=== PATIENT | female | born 1960 | race Caucasian/White ===

== ENCOUNTER 2020-08-18 12:30 | Outpatient (REF) | payer MEDICARE, MEDICAID, SELFPAY | END 2020-08-18 12:31 | disposition home or self-care (01) | LOC: HO.MAMMO 12:30 | PROVIDERS: Visit Provider Hospitalist | DX: Z13.89 Encounter for screening for other disorder (principal) ==

== ENCOUNTER 2022-05-12 10:54 | Emergency (ER) | payer MEDICARE, MEDICAID, SELFPAY ==
--- NOTE | ~2022-05-12 | US_ITS ---
EXAMINATION: US VENOUS ULTRASOUND WITH DOPPLER LOWER EXTREMITY, RIGHT CLINICAL INFORMATION: Swelling, redness COMPARISON: None TECHNIQUE: Ultrasound of the deep veins is performed from the hip to the calf with compression sonography and color and pulse Doppler assessment. Spectral analysis with color-flow imaging is performed. FINDINGS: There is normal venous compression and respiratory variation and augmented flow. The visualized common femoral vein, superficial femoral vein, profunda femoral vein, popliteal vein, and the trifurcation region shows no evidence of deep venous thrombosis. There is no significant popliteal fossa cyst. If the patient's symptoms persist, followup ultrasound in 5 days 7 days might be of value to exclude proximal propagation from a non-visualized calf vein. US/US venous duplex LE RT IMPRESSION: No DVT demonstrated in the right lower extremity.
[2022-05-12 11:08] VITALS: BP 135/70; BP 156/96; PULSE 72; PULSE 80; RESP 18; TEMP 37.7; O2SAT 95; O2SAT 97; BMI 47.2
[2022-05-12 11:15] VITALS: BP 135/70; PULSE 80; RESP 18; TEMP 37.7; O2SAT 95
--- NOTE | 2022-05-12 13:28 | ED.GENADULT ---
HPI - General Adult General Chief complaint: General Medical <MARIA D Gonzalez Last Filed: 05/12/22 16:22> Stated complaint: RT FOOT PAIN X 2 DAYS <MARIA D Gonzalez - Last Filed: 05/12/22 16:22> Time Seen by Provider: 05/12/22 13:20 <MARIA D Gonzalez Last Filed: 05/12/22 16:22> Source: patient and EMS <MARIA D Gonzalez Last Filed: 05/12/22 16:22> Mode of arrival: EMS <MARIA D Gonzalez Last Filed: 05/12/22 16:22> Limitations: no limitations <MARIA D Gonzalez Last Filed: 05/12/22 16:22> History of Present Illness HPI narrative: 61-year-old female with history of TBI presents the ER from [facility] for evaluation of right foot pain and swelling for the last couple of days. reportedly there was a portable x-ray taken at the facility that did not show any fractures. There was concern for possible blood clot so an ultrasound was scheduled but the staff decided center into the ER for further evaluation today. Patient is a poor historian. She thinks she might have hit it against something a couple of days ago but cannot recall the details. She reports the top of her foot is swollen and bruised. She has no redness or warmth to the area. She denies any fevers, muscle aches, swelling of the calf or calf pain. No shortness of breath or chest pain. She is not diabetic. she is ambulatory <MARIA D Gonzalez Last Filed: 05/12/22 16:22> MD complaint: Right foot pain and swelling <MARIA D Gonzalez Last Filed: 05/12/22 16:22> Onset (ago): unknown <MARIA D Gonzalez Last Filed: 05/12/22 16:22> Location: right and lower extremity <MARIA D Gonzalez Last Filed: 05/12/22 16:22> Radiation: non-radiation <MARIA D Gonzalez Last Filed: 05/12/22 16:22> Severity: moderate <MARIA D Gonzalez Last Filed: 05/12/22 16:22> Severity scale (1-10): 5 <MARIA D Gonzalez - Last Filed: 05/12/22 16:22> Quality: aching <MARIA D Gonzalez - Last Filed: 05/12/22 16:22> Pain Consistency: intermittent <MARIA D Gonzalez - Last Filed: 05/12/22 16:22> Relieving factors: none <MARIA D Gonzalez - Last Filed: 05/12/22 16:22> Exacerbating factors: other ( palpation) <MARIA D Gonzalez - Last Filed: 05/12/22 16:22> Associated symptoms: denies other symptoms <MARIA D Gonzalez - Last Filed: 05/12/22 16:22> Treatments prior to arrival: none <MARIA D Gonzalez - Last Filed: 05/12/22 16:22> Related Data Home medications: Home Medications Medication Instructions Recorded Confirmed acetaminophen 325 mg tablet 650 mg PO QID PRN 11/08/21 albuterol sulfate 90 mcg/actuation 2 puff inhalation QID 11/08/21 aerosol inhaler atorvastatin 10 mg tablet 10 mg PO DAILY 11/08/21 bisacodyl 10 mg rectal suppository 10 mg HI DAILY PRN 11/08/21 emollient combination no.[id number] appl topical 11/08/21 (Eucerin Advanced Repair topical cream) fluoride (sodium) 1.1 % dental gel 1 appl dental BEDTIME 11/08/21 (SF) gabapentin 100 mg capsule 100 mg PO TID 11/08/21 gabapentin 400 mg capsule 400 mg PO TID 11/08/21 glucagon 1 mg solution for 1 mg subcut Q20M PRN 11/08/21 injection (Glucagon Emergency Kit) guaifenesin 100 mg/5 mL oral liquid 200 mg PO Q4H PRN 11/08/21 ibuprofen 600 mg tablet 600 mg PO TID 11/08/21 lactulose 10 gram/15 mL oral PO 11/08/21 solution losartan 50 mg tablet 50 mg PO DAILY 11/08/21 menthol 0.44 %-zinc oxide 20.6 % 1 appl topical Q1H PRN 11/08/21 topical paste metoprolol succinate 25 mg 25 mg PO DAILY 11/08/21 tablet,extended release 24 hr mineral oil (Fleet Mineral Oil 118 ml HI DAILY PRN 11/08/21 enema) nystatin 100,000 unit/gram topical 1 appl topical QID 11/08/21 powder quetiapine 25 mg tablet mg PO 11/08/21 sennosides 8.6 mg tablet (Natural 8.6 mg PO BEDTIME 11/08/21 Senna Laxative) venlafaxine 150 mg 150 mg PO DAILY 11/08/21 capsule,extended release 24 hr venlafaxine 75 mg capsule,extended 75 mg PO DAILY 11/08/21 release 24 hr <MARIA D Gonzalez - Last Filed: 05/12/22 16:22> Allergies/adverse reactions: Allergies Allergy/AdvReac Type Severity Reaction Status Date / Time haloperidol [From HALDOL] Allergy Unknown UNKNOWN Verified 11/08/21 14:48 latex [LATEX] Allergy Unknown UNKNOWN Verified 11/08/21 14:48 Penicillins [PENICILLINS] Allergy Unknown UNKNOWN Verified 11/08/21 14:48 From HALDOL Allergy Unknown UNKNOWN Uncoded 01/08/20 18:03 <MARIA D Gonzalez - Last Filed: 05/12/22 16:22> Review of Systems Review of Systems: Yes all other systems are reviewed and are negative <MARIA D Gonzalez - Last Filed: 05/12/22 16:22> [facility] Past Medical History Medical History: Medical History Alcohol abuse Anoxic brain damage, not elsewhere classified Aphasia Cocaine abuse Constipation Disease of circulatory system Extrapyramidal and movement disorder, unspecified History of major depression Mood disorder due to known physiological condition, unspecified Morbid obesity Opioid abuse Other lack of coordination Other specified forms of tremor Traumatic brain injury Type 2 diabetes mellitus Unspecified injury of head, sequela <MARIA D Gonzalez - Last Filed: 05/12/22 16:22> Social History Social History: Social History Alcohol intake: never Smoked in Last 30 Days: No Use of substances other than those prescribed or required for medical reasons: No Any prior treatment program specific to substance use: No Advance Directives: No Patient : No <MARIA D Gonzalez - Last Filed: 05/12/22 16:22> Physical Exam ED Vital Signs: Vital Signs - 24 hr 05/12/22 11:08 05/12/22 11:15 Temperature 99.8 F 99.8 F Pulse Rate 80 80 Respiratory Rate 18 18 Blood Pressure 135/70 135/70 Pulse Oximetry 95 95 Oxygen Delivery Method Room Air Room Air BMI result Body Mass Index 47.2 <MARIA D Gonzalez - Last Filed: 05/12/22 16:22> Vital Signs - 24 hr 05/12/22 11:08 05/12/22 11:15 Temperature 99.8 F 99.8 F Pulse Rate 80 80 Respiratory Rate 18 18 Blood Pressure 135/70 135/70 Pulse Oximetry 95 95 Oxygen Delivery Method Room Air Room Air BMI result Body Mass Index 47.2 <Yohan Suarez MD - Last Filed: 05/12/22 16:28> Appearance: Alert. Oriented X3. No acute distress. HEENT: normal inspection CVS: Normal heart rate and rhythm. Pulses normal. Respiratory: No respiratory distress. Speaks in complete sentences. Skin: Skin warm and dry. Normal skin color. Normal skin turgor. No rashes. Extremities: top of the right foot with mild to moderate generalized swelling with bluish ecchymosis at the base of the toes extending to the foot. No point tenderness. No swelling or tenderness of the medial or lateral malleoli. Normal range of motion of the toes. Foot is warm and well perfused with 1+ DP and PT pulses. No calf tenderness or swelling, no erythema. No pitting edema of the lower extremities. Neuro: Oriented X 3. No motor deficit. No sensory deficit. Intermittently agitated but redirectable. <MARIA D Gonzalez - Last Filed: 05/12/22 16:22> Course Course Course Narrative: 61 yo female with history TBI presenting with right foot pain, swelling and bruising. Appears to be traumatic in nature with some ecchymosis and swelling. X-ray at the facility was negative for fracture. Does not appear to be compatible with cellulitis, no erythema or warmth. Doubt DVT but will get ultrasound for further evaluation. Patient has been up to ambulating to the bathroom with a steady gait. <MARIA D Gonzalez - Last Filed: 05/12/22 16:22> Reevaluation(s) Reevaluation #1: Basic labs are unremarkable. Ultrasound is negative for DVT. Patient is stable for discharge back to her nursing facility, discussed rest, ice, elevation and William wrap p.r.n.. Stable for DC. Patient agrees with plan. <MARIA D Gonzalez - Last Filed: 05/12/22 16:22> Medical Decision Making Differential Diagnosis Differential Diagnoses: The differential diagnosis associated with the presentation includes <MARIA D Gonzalez - Last Filed: 05/12/22 16:22> Cellulitis, contusion, broken metatarsal, broken toe, ankle sprain, less likely DVT, less likely CHF, <MARIA D Gonzalez - Last Filed: 05/12/22 16:22> Lab Data MDM Lab Attestation statement: I reviewed the patient's lab results. <MARIA D Gonzalez - Last Filed: 05/12/22 16:22> unremarkable <MARIA D Gonzalez - Last Filed: 05/12/22 16:22> Result Diagrams: 05/12/22 13:33 05/12/22 13:32 <MARIA D Gonzalez - Last Filed: 05/12/22 16:22> Labs: Lab Results 05/12/22 05/12/22 Range/Units 13:32 13:33 WBC 4.4 L (4.8-10.8) X10*3/uL RBC 3.93 L (4.20-5.50) X10*6/uL Hgb 11.6 L (12.0-16.0) g/dl Hct 34.3 L (37.0-47.0) % MCV 87.3 (80.0-98.0) fL MCH 29.5 (27.0-33.0) pg MCHC 33.8 (31.0-35.0) g/dl RDW 12.8 (11.0-16.0) % Plt Count 182 (160-400) X10*3/uL MPV 9.3 L (9.4-12.3) fL Immature Gran % (Auto) 0.2 (0.0-0.4) % Neut % (Auto) 53.8 (45-73) % Lymph % (Auto) 30.4 (20-40) % Runnels % (Auto) 11.3 H (2-11) % Eos % (Auto) 4.1 H (0-4) % Baso % (Auto) 0.2 (0-2) % Lymph # (Auto) 1.3 (1.2-4.9) X10*3/uL Runnels # (Auto) 0.5 (0.1-1.2) X10*3/uL Eos # (Auto) 0.2 (0.0-0.4) X10*3/uL Baso # (Auto) 0.0 (0.0-0.2) X10*3/uL Abs Immat Gran (auto) 0.01 (0.00-0.03) X10*3/uL Absolute Neuts (auto) 2.4 (2.0-8.3) x10*3/uL Absolute Nucleated RBC 0.000 (0.0-0.012) X10*3/uL Nucleated RBC % (auto) 0.0 (0.0-0.2) /100WBC Sodium 135 (135-145) mmol/L Potassium 3.9 (3.3-5.1) mmol/L Chloride 103 (96-108) mmol/L Carbon Dioxide 26 (22-29) mmol/L Anion Gap 10 L (12-20) BUN 12 (9-16) mg/dL Creatinine 0.76 (0.5-1.4) mg/dL Estim Creat Clear Calc 107.9 Estimated GFR > 60 Random Glucose 125 H (60-115) mg/dL Calcium 8.6 (8.4-10.2) mg/dL C-Reactive Protein 4.08 H (< or = 0.50) mg/dL <MARIA D Gonzalez - Last Filed: 05/12/22 16:22> Lab Results 05/12/22 05/12/22 Range/Units 13:32 13:33 WBC 4.4 L (4.8-10.8) X10*3/uL RBC 3.93 L (4.20-5.50) X10*6/uL Hgb 11.6 L (12.0-16.0) g/dl Hct 34.3 L (37.0-47.0) % MCV 87.3 (80.0-98.0) fL MCH 29.5 (27.0-33.0) pg MCHC 33.8 (31.0-35.0) g/dl RDW 12.8 (11.0-16.0) % Plt Count 182 (160-400) X10*3/uL MPV 9.3 L (9.4-12.3) fL Immature Gran % (Auto) 0.2 (0.0-0.4) % Neut % (Auto) 53.8 (45-73) % Lymph % (Auto) 30.4 (20-40) % Runnels % (Auto) 11.3 H (2-11) % Eos % (Auto) 4.1 H (0-4) % Baso % (Auto) 0.2 (0-2) % Lymph # (Auto) 1.3 (1.2-4.9) X10*3/uL Runnels # (Auto) 0.5 (0.1-1.2) X10*3/uL Eos # (Auto) 0.2 (0.0-0.4) X10*3/uL Baso # (Auto) 0.0 (0.0-0.2) X10*3/uL Abs Immat Gran (auto) 0.01 (0.00-0.03) X10*3/uL Absolute Neuts (auto) 2.4 (2.0-8.3) x10*3/uL Absolute Nucleated RBC 0.000 (0.0-0.012) X10*3/uL Nucleated RBC % (auto) 0.0 (0.0-0.2) /100WBC Sodium 135 (135-145) mmol/L Potassium 3.9 (3.3-5.1) mmol/L Chloride 103 (96-108) mmol/L Carbon Dioxide 26 (22-29) mmol/L Anion Gap 10 L (12-20) BUN 12 (9-16) mg/dL Creatinine 0.76 (0.5-1.4) mg/dL Estim Creat Clear Calc 107.9 Estimated GFR > 60 Random Glucose 125 H (60-115) mg/dL Calcium 8.6 (8.4-10.2) mg/dL C-Reactive Protein 4.08 H (< or = 0.50) mg/dL <Yohan Suarez MD - Last Filed: 05/12/22 16:28> Independent Interpretation I performed an independent interpretation of an: Ultrasound <MARIA D Gonzalez - Last Filed: 05/12/22 16:22> Interpretation: no visualized clot <MARIA D Gonzalez - Last Filed: 05/12/22 16:22> Radiology Impression Discussion of test interpretation with radiology: I have reviewed the radiologist's reading. <MARIA D Gonzalez - Last Filed: 05/12/22 16:22> Radiologist Impression: IMPRESSION: No DVT demonstrated in the right lower extremity. <MARIA D Gonzalez - Last Filed: 05/12/22 16:22> Prescription Management I considered prescription management with: Pain Medication and Antibiotic <MARIA D Gonzalez - Last Filed: 05/12/22 16:22> NSAIDs and Tylenol okay for pain control, no role for antibiotics. <MARIA D Gonzalez - Last Filed: 05/12/22 16:22> Social Determinants Patient?s care significantly limited by Social Determinants of Health including: Other Social Determinant of Health <MARIA D Gonzalez - Last Filed: 05/12/22 16:22> Attestation Attending Attestation: I personally reviewed PA/resident/nurse practitioner note. I reviewed a all results and treatment plan. I agree with the assessment and plan. I agree with disposition <Yohan Suarez MD - Last Filed: 05/12/22 16:28> Critical Care Time Critical Care Time Critical Care Time: No <MARIA D Gonzalez - Last Filed: 05/12/22 16:22> Discharge Plan Discharge Clinical Impression: Contusion of foot <MARIA D Gonzalez - Last Filed: 05/12/22 16:22> Patient Disposition: Home, Self-Care <MARIA D Gonzalez - Last Filed: 05/12/22 16:22> Instructions: Foot Contusion (ED) <MARIA D Gonzalez - Last Filed: 05/12/22 16:22> Additional Instructions: Your lab workup was unremarkable. Your ultrasound did not show any blood clot. You do not have an infection. Your foot is bruised - it will get better with ice, elevation and Motrin/Tylenol as needed for pain. You can wear an WILLIAM wrap as needed for compression and support. Follow up with your doctor as needed.d <MARIA D Gonzalez - Last Filed: 05/12/22 16:22> Prescriptions: No Action atorvastatin 10 mg tablet 10 mg PO DAILY gabapentin 100 mg capsule 100 mg PO TID lactulose 10 gram/15 mL solution PO losartan 50 mg tablet 50 mg PO DAILY venlafaxine 150 mg capsule,extended release 24hr 150 mg PO DAILY quetiapine 25 mg tablet PO venlafaxine 75 mg capsule,extended release 24hr 75 mg PO DAILY metoprolol succinate 25 mg tablet extended release 24 hr 25 mg PO DAILY gabapentin 400 mg capsule 400 mg PO TID acetaminophen 325 mg tablet 650 mg PO QID PRN albuterol sulfate 90 mcg/actuation HFA aerosol inhaler 2 puff inhalation QID bisacodyl 10 mg suppository 10 mg HI DAILY PRN menthol-zinc oxide 0.44-20.6 % paste 1 appl topical Q1H PRN Rx Instructions: while awake Eucerin Advanced Repair Cream topical mineral oil [Fleet Mineral Oil] Enema 118 ml HI DAILY PRN Rx Instructions: discard any unused portion Glucagon Emergency Kit (human) 1 mg recon soln 1 mg subcut Q20M PRN Rx Instructions: until target blood sugar attained guaifenesin 100 mg/5 mL liquid 200 mg PO Q4H PRN ibuprofen 600 mg tablet 600 mg PO TID nystatin 100,000 unit/gram powder 1 appl topical QID sennosides [Natural Senna Laxative] 8.6 mg tablet 8.6 mg PO BEDTIME fluoride (sodium) [SF] 1.1 % gel 1 appl dental BEDTIME <MARIA D Gonzalez - Last Filed: 05/12/22 16:22>
[2022-05-12 13:43] LABS: MANUAL DIFF FLAG NO
[2022-05-12 13:46] LABS: Basophils Percent Auto 0.2 % (0-2); Eosinophils Percent Auto 4.1 % (0-4); Hematocrit 34.3 % (37.0-47.0); Hemoglobin 11.6 g/dl (12.0-16.0); Imm Gran Abs Auto 0.01 X10*3/uL (0.00-0.03); Imm Gran Pct Auto 0.2 % (0.0-0.4); Lymphocytes Absolute Auto 1.3 X10*3/uL (1.2-4.9); Lymphocytes Percent Auto 30.4 % (20-40); Mean Corpuscular HGB Conc 33.8 g/dl (31.0-35.0); Mean Corpuscular Hemoglobin 29.5 pg (27.0-33.0); Mean Corpuscular Volume 87.3 fL (80.0-98.0); Mean Platelet Volume 9.3 fL (9.4-12.3); Monocytes Percent Auto 11.3 % (2-11); Neutrophils Absolute Auto 2.4 x10*3/uL (2.0-8.3); Neutrophils Percent Auto 53.8 % (45-73); Platelet Count 182 X10*3/uL (160-400); Red Blood Count 3.93 X10*6/uL (4.20-5.50); Red Cell Distribution Width 12.8 % (11.0-16.0); White Blood Count 4.4 X10*3/uL (4.8-10.8)
[2022-05-12 13:47] LABS: Eosinophils Absolute Auto 0.2 X10*3/uL (0.0-0.4); Monocytes Absolute Auto 0.5 X10*3/uL (0.1-1.2)
[2022-05-12 14:14] LABS: Anion Gap 10 (12-20); Blood Urea Nitrogen 12 mg/dL (9-16); C Reactive Protein 4.08 mg/dL (< or = 0.50); Calcium 8.6 mg/dL (8.4-10.2); Carbon Dioxide 26 mmol/L (22-29); Chloride 103 mmol/L (96-108); Creatinine Clr Calc Pharmacy 107.9; Estimated Glomerular Filt Rate > 60; Glucose Random 125 mg/dL (60-115); Potassium 3.9 mmol/L (3.3-5.1); Sodium 135 mmol/L (135-145)
--- NOTE | 2022-05-12 14:55 | PC.NURSE ---
Patient ambulating to bathroom with steady gait
[2022-05-12 17:07] LABS: Erythrocyte Sedimentation Rate 45 MM/HR (0-20)
--- NOTE | 2022-05-12 17:11 | PC.NURSE ---
Report called and given to [facility] staff
== END 2022-05-12 19:20 | disposition home or self-care (01) ==
PROVIDERS: Physician Assistant; Emergency Provider Emergency Medicine; PCP Hospitalist
DX: S90.31XA Contusion of right foot, initial encounter (principal); M79.671 Pain in right foot; M79.89 Other specified soft tissue disorders; X58.XXXA Exposure to other specified factors, initial encounter; Y93.9 Activity, unspecified; Y92.9 Unspecified place or not applicable; Y99.9 Unspecified external cause status
CPT/HCPCS: 36415; 80048; 85025; 85652; 86140; 93971; 99284

== ENCOUNTER 2023-08-17 14:50 | Outpatient (REF) | payer MEDICARE, MEDICAID, SELFPAY ==
[2023-08-18 06:53] LABS: CT PCR NOT DETECTED (Not Detect.); NG PCR NOT DETECTED (Not Detect.)
[2023-08-19 11:42] LABS: BV Int Neg Control Negative (Negative); BV Int Pos Control Positive (Positive)
[2023-08-22 23:18] LABS: HPV mRNA E6/E7 rflx Not Detected (Not Detected)
== END 2023-08-17 14:51 | disposition home or self-care (01) ==
LOC: HO.LNP 14:50
PROVIDERS: PCP Hospitalist; Visit Provider Advanced Practice Midwife
DX: Z01.419 Encounter for gynecological examination (general) (routine) without abnormal findings (principal); Z20.2 Contact with and (suspected) exposure to infections with a predominantly sexual mode of transmission
CPT/HCPCS: 0353U; 87480; 87510; 87624; 87660; 88142; G0101; Q0091

== ENCOUNTER 2023-08-17 14:50 | Outpatient (AMB) | payer MEDICARE, MEDICAID, SELFPAY ==
--- NOTE | 2023-08-17 14:51 | A.OFFVIS_ITS ---
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 Mineral Technologist Required: No Information Interpreted: non-clinical & clinical Stitching Department Supervisor: Stitching Department Supervisor Present (Sheridan WILLETT) Accompanied by: Employee Allergies haloperidol [From HALDOL] Allergy (Unknown, Verified 08/17/23 14:57) UNKNOWN latex [LATEX] Allergy (Unknown, Verified 08/17/23 14:57) UNKNOWN Penicillins [PENICILLINS] Allergy (Unknown, Verified 08/17/23 14:57) UNKNOWN From HALDOL Allergy (Unknown, Uncoded 08/17/23 14:57) UNKNOWN Post menopausal: Yes [facility] Medical History Constipation Anoxic brain damage, not elsewhere classified Extrapyramidal and movement disorder, unspecified Cocaine abuse Opioid abuse Alcohol abuse Mood disorder due to known physiological condition, unspecified Disease of circulatory system Other lack of coordination Other specified forms of tremor Morbid obesity Unspecified injury of head, sequela Aphasia Traumatic brain injury Type 2 diabetes mellitus History of major depression Social History (Updated 08/17/23 @ 16:21 by Sheridan Mota CMA) Caregiver staying overnight: Yes Housing: Assisted Living Facility Alcohol intake: former Patient Tobacco Use Status: Former Tobacco user Substance Use Type: Crack/Cocaine, Opiates and Other Female Reproductive History Menstrual Menopause type: natural Total pregnancies: 2 Full term: 2 Number of Living Children: 2 Physical Exam Vital Signs: Last Vital Signs BP 126/80 08/17/23 14:55 BMI result Body Mass Index 44.2 Assessment & Plan Assessment & Plan Orders: Orders CT NG by PCR Today Z01.419 - Encounter for gynecological examination (general) (routine) without abnormal findings Pap Smear Today Z01.419 - Encounter for gynecological examination (general) (routine) without abnormal findings Bacterial Vaginosis Panel Today Z01.419 - Encounter for gynecological examination (general) (routine) without abnormal findings Coding
--- NOTE | 2023-08-17 14:51 | A.OFFVIS_ITS ---
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 Accompanied by her [facility] staff members SAMMI Cohn and Farhana Salguero RN. Staff report the family was concerned about a possible screening for HPV unclear if that is the only reason they wanted her to be seen. Agency notes are not available at today's visit. Staff reports she has a good appetite, limited exercise and activity does participate in OT. No episodes of postmenopausal bleeding reported. No conjugal visits.. No Pap smear records on file, last visit 2 years ago patient was not cooperative for any clinical laboratory science professor exam. Last mammogram; not up-to-date, staff reported she was unable to complete the procedure difficulty with standing. [facility] Medical History Constipation Anoxic brain damage, not elsewhere classified Extrapyramidal and movement disorder, unspecified Cocaine abuse Opioid abuse Alcohol abuse Mood disorder due to known physiological condition, unspecified Disease of circulatory system Other lack of coordination Other specified forms of tremor Morbid obesity Unspecified injury of head, sequela Aphasia Traumatic brain injury Type 2 diabetes mellitus History of major depression Social History (Updated 08/17/23 @ 15:00 by Sheridan Mota CMA) Caregiver staying overnight: Yes Housing: Assisted Living Facility Alcohol intake: former Patient Tobacco Use Status: Former Tobacco user Substance Use Type: Other Review of Systems Const All systems reviewed & are unremarkable except as noted in HPI and below Reports as per HPI Eyes Reports no additional complaints ENT Reports no additional complaints Card Reports no additional complaints Resp Reports no additional complaints GI Reports as per HPI and Reports no additional complaints Reports as per HPI Musc Reports no additional complaints Skin/Breast Reports as per HPI Neuro Reports no additional complaints Psych Reports no additional complaints Endo Reports no additional complaints Gideon/Lymph Reports no additional complaints Aller/Immun Reports no additional complaints Physical Exam Vital Signs: Last Vital Signs BP 126/80 08/17/23 14:55 BMI result Body Mass Index 44.2 Const General: cooperative, healthy appearing, no acute distress, well developed and alert Orientation/consciousness: patient oriented x3 HEENT Head: Yes normal to inspection Eyes General: appearance normal, both eyes and all related structures Neck Neck: Yes normal visual inspection Thyroid: Thyroid normal Chest Chest palpation & inspection: normal inspection of the chest and other (no puckering, dimpling, peau de orange, retraction, discharge, masses) Breast/axilla inspection: normal inspection of the breasts Breast/axilla palpation: normal palpation of the breasts Resp Effort & Inspection: normal respiratory effort GI Inspection: Yes normal to inspection Palpation (GI): Soft to palpation Rectal Exam - Female: deferred Other: Difficult exam due to tensing and cooperative despite staff support and coaching. General: Yes bladder normal to palpation External Female Exam: normal external appearance and normal appearance of the urethra Speculum Exam - Vagina: normal appearance of the vagina, normal palpation, normal vaginal discharge and vagina atrophic (Moderate atrophy) Speculum Exam - Cervix: normal palpation (Not visualized fully due to patient's inability to fully cooperate) Bimanual exam- vagina & uterus: normal bimanual exam, normal palpation, bladder normal to palpation, normal palpation (Not visualized fully due to patient's inability to fully cooperate) and other (Limited exam due to body habitus and patient cooperation) Bimanual Exam- Adnexa, other: no masses Skin General skin exam: no rashes or lesions noted Rashes: no rashes Neuro General: patient oriented x3 Cognition (Neuro): normal cognition Extrem General: Yes normal to inspection Psych Attitude: cooperative Thought process: Normal thought process present Assessment & Plan Assessment & Plan (1) Encounter for well woman exam with routine gynecological exam: Code(s): Z01.419 - Encounter for gynecological examination (general) (routine) without abnormal findings Plan Discussed: Current recommendations for pap smears per ASCCP guidelines. Mammograms were deferred due to her inability to stand and cooperate for a scan. Maintain a healthy lifestyle, well balanced diet including Calcium 1,200 mg and Vitamin D 600 IU daily, and routine exercise-OT and anything that will motivate her to move more and stay active. Contact the office with any postmenopausal bleeding. Discussed with family the the difficulty the patient experienced with the exam causing stress. Advised to come in for any concerns for clinical laboratory science professor as needed. Reviewed criteria with Pap smear guidelines with staff. Patient and the staff was given opportunity to ask questions and all questions were answered to the best of my ability. Patient had limited comprehension of her visit today and did not offer any conversation or concerns. RTO in 2 year for annual clinical laboratory science professor exam. This note is constructed using voice recognition software. While every effort has been made to ensure accuracy, platemaker errors may have been included. Coding Level of Care Code Est Pt Prev Care 40-64y(55947) Diagnoses Encounter for well woman exam with routine gynecological exam Z01.419
[2023-08-17 14:55] VITALS: BP 126/80; BMI 44.2
== END 2023-08-20 07:31 | disposition home or self-care (01) ==
LOC: HO.HWS 14:50
PROVIDERS: PCP Hospitalist; Referring Provider Hospitalist; Visit Provider Advanced Practice Midwife
DX: Z01.419 Encounter for gynecological examination (general) (routine) without abnormal findings (principal)
CPT/HCPCS: G0101; Q0091

== ENCOUNTER → 2023-11-22 08:45 | Outpatient (BNV) | payer MEDICARE, MEDICAID, SELFPAY | PROVIDERS: PCP Hospitalist; Visit Provider Radiology Diagnostic Radiology | DX: Z12.31 Encounter for screening mammogram for malignant neoplasm of breast (principal) | CPT/HCPCS: 77063; 77067 ==

== ENCOUNTER 2023-11-22 08:49 | Outpatient (REF) | payer MEDICARE, MEDICAID, SELFPAY ==
--- NOTE | ~2023-11-22 | MM_ITS ---
EXAMINATION: MM SCREENING DIGITAL BREAST TOMOSYNTHESIS, BILATERAL CLINICAL INFORMATION: Screening. Asymptomatic. COMPARISON: Mammography: This study is compared with prior exams dating back to 2018. TECHNIQUE: Digital breast tomosynthesis is performed in both the craniocaudal and mediolateral oblique views along with computer-aided detection (CAD). Synthesized 2D images are generated from the tomosynthesis. FINDINGS: There are scattered areas of fibroglandular density (ACR BI-RADS breast composition Category b). There are no significant masses, abnormal calcifications, or other abnormalities. Examination of the right breast in the MLO projection is somewhat limited due to the patient's inability to be correctly positioned in her wheelchair. MM/MM tomosynthesis screening BI IMPRESSION: No mammographic evidence of malignancy. ASSESSMENT: BI-RADS BI-RADS 1 - Negative RECOMMENDATION: Routine annual mammography screening. 1 year F/U This examination should not preclude the clinical evaluation of a suspicious palpable abnormality. This patient's information was entered into a reminder system with a target due date for their next mammogram. Electronically signed by: Michelle Lowe MD 12/19/2023 01:13 PM EDT
== END 2023-11-22 08:50 | disposition home or self-care (01) ==
LOC: HO.MAMMO 08:49
PROVIDERS: PCP Hospitalist; Visit Provider Hospitalist
DX: Z12.31 Encounter for screening mammogram for malignant neoplasm of breast (principal)
CPT/HCPCS: 77063; 77067

== ENCOUNTER 2025-02-09 12:02 | Outpatient (REF) | payer MEDICARE, MEDICAID, SELFPAY ==
--- NOTE | ~2025-02-09 | MM_ITS ---
EXAMINATION: MM SCREENING DIGITAL BREAST TOMOSYNTHESIS, BILATERAL CLINICAL INFORMATION: Screening. Asymptomatic. COMPARISON: Mammography: Comparison is made with available priors TECHNIQUE: Digital breast mammography with tomosynthesis is performed in both the craniocaudal and mediolateral oblique views along with computer-aided detection (CAD). FINDINGS: There are scattered areas of fibroglandular density. There are no significant masses, abnormal calcifications, or other abnormalities. MM/MM tomosynthesis screening BI IMPRESSION: No mammographic evidence of malignancy. ASSESSMENT: BI-RADS Category 1: Negative RECOMMENDATION: Routine annual mammography screening. 1 year F/U This examination should not preclude the clinical evaluation of a suspicious palpable abnormality. This patient's information was entered into a reminder system with a target due date for their next mammogram. Electronically signed by: Louisa Duong DO 02/10/2025 12:44 PM EDT
== END 2025-02-09 12:03 | disposition home or self-care (01) ==
LOC: HO.MAMMO 12:02
PROVIDERS: PCP Hospitalist; Visit Provider Hospitalist
DX: Z12.31 Encounter for screening mammogram for malignant neoplasm of breast (principal)
CPT/HCPCS: 77063; 77067

== ENCOUNTER → 2025-02-09 12:30 | Outpatient (BNV) | payer MEDICARE, MEDICAID, SELFPAY | PROVIDERS: PCP Hospitalist; Visit Provider Internal Medicine | DX: Z12.31 Encounter for screening mammogram for malignant neoplasm of breast (principal) | CPT/HCPCS: 77063; 77067 ==

== ENCOUNTER 2025-02-24 11:30 | Outpatient (AMB) | payer MEDICARE, MEDICAID, SELFPAY ==
--- NOTE | 2025-02-24 11:30 | MHC.OFFVIS ---
Vital Signs 02/24/25 11:44 BMI Reason not done Patient refused/unable BP 140/66 H Blood Pressure Location Rt radial Position Sitting Pulse 79 Intake Visit Reasons: colo screen Intake Note: New pt for initial colo screening. No record of prev colo per referral CC; She states that that she is not having any concerns. 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 Patient is sitting in the wheelchair accompanied by [facility] staff. Patient is here to discuss going for colonoscopy as her family request set. Patient never had a colonoscopy in the past. No family history of colon cancer. Patient is very anxious and sometimes aggressive when she is going to appointments. Patient has to be premedicated before going. Today patient is a very H is asking question was medicated with and anxiety minute occasional lower in our ago statin bleed patient will be able to handle the breath is she not always follow directions. Patient then staff deny any melena, hematochezia, unintentional weight loss or ribbon like stools. Patient denies to Pepcid, dysphagia or odynophagia FOR[facility], [facility] Medical History Constipation Anoxic brain damage, not elsewhere classified Extrapyramidal and movement disorder, unspecified Cocaine abuse Opioid abuse Alcohol abuse Mood disorder due to known physiological condition, unspecified Disease of circulatory system Other lack of coordination Other specified forms of tremor Morbid obesity Unspecified injury of head, sequela Aphasia Traumatic brain injury Type 2 diabetes mellitus History of major depression Social History (Updated 08/17/23 @ 16:21 by Sheridan Mota CMA) Caregiver staying overnight: Yes Housing: Assisted Living Facility Alcohol intake: former Patient Tobacco Use Status: Former Tobacco user Substance Use Type: Crack/Cocaine, Opiates and Other Review of Systems Const All systems reviewed & are unremarkable except as noted in HPI and below Physical Exam Vital Signs: Last Vital Signs Pulse 79 02/24/25 11:44 BP 140/66 H 02/24/25 11:44 Const General: healthy appearing, no acute distress and well developed Nutritional Appearance: well nourished Orientation/consciousness: patient oriented x3 Resp Effort & Inspection: normal respiratory effort, able to speak in complete sentences, no tracheal deviation and symmetric chest movement Auscultation: clear to auscultation bilaterally Cardio Rate: regular rate GI Inspection: Yes normal to inspection and No distended Palpation (GI): Soft to palpation, not firm, nontender and No hepatosplenomegaly present Auscultation: normal bowel sounds General: Yes no CVA tenderness Back/Spine/Pelvis Back: no CVA tenderness Skin General skin exam: elasticity normal, turgor normal and dry skin Neuro General: patient oriented x3 Psych Appearance: grossly normal Affect: Anxious affect present Assessment & Plan Assessment & Plan (1) Screen for colon cancer: Code(s): Z12.11 - Encounter for screening for malignant neoplasm of colon Plan Discussed with staff at the senior living and staff that is with patient and we will order Cologuard that will be sent to patient's [place] [facility]. If that comes back positive patient will be sent for colonoscopy then. Both patient and staff are agreeable to plan of care and verbalizes understanding of instructions. They were given the opportunity to ask questions and all questions answered. Thank you for allowing me to participate in her care Coding Level of Care Code New Pt Level 3 (79954) Diagnoses Screen for colon cancer Z12.11 Time Spent (min) 40 Comment 30 minutes spent with patient and additional 10 minutes spent reviewing her records
[2025-02-24 11:44] VITALS: BP 140/66; PULSE 79
--- OUTSIDE RECORDS SUMMARY | 2025-02-24 14:11 | XMS_ITS | Clinical Summary ---
Author Organization [facility] Address [address] [address] Phone Care Team Providers Care Field Representatives Director Name Role Phone Tristen Hayden DO Primary Care Provider [phone] Allergies Active Allergy Reactions Criticality Noted Date Comments Haloperidol Lactate Unknown 08/30/2016 Latex Unknown 08/30/2016 Penicillins Unknown 08/30/2016 Medications senna-docusate (PERICOLACE) 8.6-50 mg 1 tablet in the evening as needed Orally Once a day Active LORazepam (ATIVAN) 1 MG tablet 1 tablet at bedtime as needed Orally one hour prior to porcedure, may repeat x one dose prn 6 Active QUEtiapine (SEROQUEL) 25 MG tablet Take 1 tablet by mouth 2 (two) times a day. Active gabapentin (NEURONTIN) 400 MG capsule Take 1 capsule by mouth 3 (three) times a day. Active atorvastatin (LIPITOR) 10 MG tablet Take 10 mg by mouth daily. Active bisacodyl (DULCOLAX) [address] 10 mg rectally daily. Active menthol-zinc oxide (REMEDY CALAZIME PROTECT PASTE) 0.2-20 % topical paste Apply topically as needed. Active lanolin-mineral oil (ABY) Lotn Apply topically as needed. Active acetaminophen (TYLENOL) 325 mg tablet Take 650 mg by mouth every 6 (six) hours as needed for mild pain. Active albuterol 90 mcg/actuation inhaler Inhale 2 puffs into the lungs every 6 (six) hours as needed for wheezing. Active ibuprofen (ADVIL,MOTRIN) 600 MG tablet Take 600 mg by mouth every 6 (six) hours as needed for pain (specific location in comments). Active losartan (COZAAR) 50 MG tablet Take 50 mg by mouth daily. Active nystatin cream Apply topically 2 (two) times a day. Active venlafaxine (EFFEXOR-ER,) 150 mg TR24 Take 150 mg by mouth daily. Active venlafaxine (EFFEXOR) 75 MG tablet Take 75 mg by mouth 2 (two) times a day. Active Active Problems No known active problems Immunizations Immunization Administration Dates Next Due COVID-19 (Pre-02/12) Pfizer Vaccine, mRNA, PF ,04/28/2020 Family History Medical History Relation Comments Throat cancer Father Hypertension Mother Breast cancer Sister Relation Status Comments Father Alive Mother Alive Sister Alive Social History Tobacco Use Types Packs/Day Years Used Date Smoking Tobacco: Never Smokeless Tobacco: Never Alcohol Use Standard Drinks/Week Comments No 0 (1 standard drink = 0.6 oz pur e alcohol) Education Answer Date Recorded Are you interested in more education? Not on floyd e 08/18/2022 Are you concerned about learning? Not on file 08/18/2022 No 08/18/2022 No 08/18/2022 Digital Access Answer Date Recorded No 09/16/2022 No 09/16/2022 Reliable internet access at home? Not on file 09/16/2022 Device with a working camera? Not on file Comments No Sex and Gender Information Value Date Recorded Sex Assigned at Not on file Legal Sex Female 9:44 PM EDT Gender Identity Not on file Sexual Orientation Not on file Occupation Industry Job Start Date Job End Date Disabled Not on file Not on file Not on file Last Filed Vital Signs Vital Sign Reading Time Taken Comments Blood Pressure 122/88 01/30/2018 12:09 PM EDT Pulse - - Temperature - - Respiratory Rate - - Oxygen Saturation - - Inhaled Oxygen Concentration - - Weight 127.9 kg (282 lb) 08/31/2020 9:34 AM EDT Height 162.6 cm (5' 4 ) 08/30/2016 8:58 AM EDT Body Mass Index 48.41 08/30/2016 8:58 AM EDT Plan of Treatment Health Maintenance Due Date Last Done Comments Adult Td,Tdap Booster 1962 CREATININE LEVEL 1962 LIPID PANEL 1962 POTASSIUM LEVEL 1962 DEPRESSION SCREENING 1974 HEPATITIS C SCREENING 1980 HIV ONE-TIME SCREENING (18-6 5 YEARS) 1980 MAMMOGRAM 2002 COLOGUARD 07/30/2007 COLONOSCOPY 07/30/2007 COLORECTAL CANCER SCREENING 07/30/2007 FIT TEST 07/30/2007 FOBT 07/30/2007 SIGMOIDOSCOPY 07/30/2007 VIRTUAL COLONOSCOPY 07/30/2007 PNEUMOCOCCAL VACCINES (50+ years) (1 of 1 - PCV) 2012 ZOSTER VACCINES (1 of 2) 2012 PAP SMEAR 08/30/2021 08/30/2016 INFLUENZA VACCINE (#1) 2024 COVID-19 VACCINE (3 - 2024-2 6 season) 2024 05/19/2020, 04/28/2020 RSV VACCINE (1 - 1-dose 75+ series) 2037 SMOKING STATUS SCREENING (On ce After 26 Yrs) Completed 02/06/2020 HEPATITIS A VACCINES Aged Out No long er eligible based on patient's age to complete this topic HIB VACCINES Aged Out No longer eligi ble based on patient's age to complete this topic MENINGOCOCCAL VACCINES (ACWY) Aged Out No longer eligible based on patient's age to complete this topic MENINGOCOCCAL VACCINES (B) Aged Out N o longer eligible based on patient's age to complete this topic Medical Devices Not on file Procedures Procedure Name Priority Date/Time Associated Diagnosis Comments PAP SMEAR FOR RESULT ENTRY ONLY Routine 08/30/2016 from Last 3 Months or Most Recently Relevant to Health Maintenance Results * PAP SMEAR FOR RESULT ENTRY ONLY (08/30/2016) Pap smear NIL, HPV Negative (-16/-18) us Historical Provider HEALTH MAINTENANCE Final Result from Last 3 Months or Most Recently Relevant to Health Maintenance Insurance MEDICARE PART A & B MEDICARE PART A & B MEDICARE PART A & B MEDICARE PART A & B MEDICARE PART A & B MEDICARE PART A & B MEDICARE PART A & B MEDICARE PART A & B MEDICARE PART A & B Care Teams Field Representatives Director Relationship Specialty Start Date End Date Tristen Hayden DO [address] [place] [address] PCP - General 04/26/17 Additional Source Comments The information contained in this document represents components of the legal health record. It is not the complete legal health record.[facility]
== END 2025-02-24 12:17 | disposition home or self-care (01) ==
LOC: HO.HGI 11:30
PROVIDERS: PCP Hospitalist; Visit Provider Nurse Practitioner Family
DX: Z01.818 Encounter for other preprocedural examination (principal); Z12.11 Encounter for screening for malignant neoplasm of colon
CPT/HCPCS: 99024

== ENCOUNTER → 2025-02-24 11:30 | Outpatient (BNVA) | payer MEDICARE, MEDICAID, SELFPAY | PROVIDERS: PCP Hospitalist; Visit Provider Nurse Practitioner Family | DX: Z01.818 Encounter for other preprocedural examination (principal) | CPT/HCPCS: 99212 ==